=== PATIENT | male | born 1955 | race Caucasian/White ===

== ENCOUNTER 2017-10-14 15:48 | Emergency (ER) | payer MEDICAID ==
[~2017-10-14] VITALS: Ht 170.2 cm; Wt 77.3 kg
[2017-10-14 16:02] LABS: GLUCOSE,POINT OF CARE 96 MG/DL (70-110)
[2017-10-14 17:15] LABS: BASOPHILS # (AUTO) 0.05 K/uL (0.00-0.20); BASOPHILS % (AUTO) 0.8 % (0.0-2.0); EOSINOPHILS # (AUTO) 0.54 K/uL (0.00-0.70); EOSINOPHILS % (AUTO) 8.82 % (1.0-6.0); HEMATOCRIT 31.5 % (41-53); HEMOGLOBIN 10.6 g/dL (13.5-17.5); LYMPHOCYTES # (AUTO) 0.5 K/uL (1.0-4.8); LYMPHOCYTES % (AUTO) 8.9 % (22.0-44.0); MEAN CORPUSCULAR HEMOGLOBIN 35.4 pg (26.0-34.0); MEAN CORPUSCULAR HGB CONC 33.7 G/dL (31.0-37.0); MEAN CORPUSCULAR VOLUME 105 fL (80-100); MONOCYTES # (AUTO) 0.7 K/uL (0.1-1.0); NEUTROPHILS # (AUTO) 4.3 K/uL (1.8-7.7); NEUTROPHILS % (AUTO) 70.4 % (40.0-70.0); RED CELL DISTRIBUTION WIDTH 16.8 % (11.5-14.5); WHITE BLOOD COUNT (AUTO) 6.1 K/uL (4.5-11.0)
[2017-10-14] MEDS ORDERED: FERR-89 GT (17:17)
[2017-10-14] MEDS ORDERED: THIA100 GT (17:17)
[2017-10-14] MEDS ORDERED: ALLO100T GT (17:17)
[2017-10-14] MEDS ORDERED: RIFAX550 GT (17:17)
[2017-10-14] MEDS ORDERED: AMIO200T44 GT (17:17)
[2017-10-14] MEDS ORDERED: QUET25TA GT (17:17)
[2017-10-14] MEDS ORDERED: LANS30 GT (17:17)
[2017-10-14] MEDS ORDERED: LACT10SO8 GT (17:17)
[2017-10-14] MEDS ORDERED: FOLI1 GT (17:17)
[2017-10-14] MEDS ORDERED: QUET100T GT (17:19)
[2017-10-14 17:24] LABS: ANION GAP 10 mmol/L (8-16); CALCIUM, TOTAL 9.4 mg/dL (8.8-10.5); CARBON DIOXIDE 26 mmol/L (22-29); CHLORIDE 105 mmol/L (98-107); CREATININE 1.08 mg/dL (0.60-1.30); GLOMERULAR FILTR. RATE CALC > 60 mL/min (>60); SODIUM SERUM 141 mmol/L (136-145); UREA NITROGEN, BLOOD 26 mg/dL (7-18)
[2017-10-14 17:30] LABS: ALANINE AMINOTRANSFERASE 39 U/L (12-78); ALBUMIN 2.8 g/dL (3.4-5.0); ASPARTATE AMINOTRANSFERASE 62 U/L (15-37); BILIRUBIN,TOTAL 1.3 mg/dL (0.1-1.0); TOTAL PROTEIN, SERUM 7.9 g/dL (6.4-8.2)
[2017-10-14 17:50] LABS: PLATELET COUNT (AUTO) 64 K/uL (150-450)
[2017-10-14 17:51] LABS: RBC MORPHOLOGY COMMENT ABNORMAL RBC MORPH
[2017-10-14 20:17] VITALS: BP 120/70
== END 2017-10-14 22:03 | disposition home or self-care (01) ==
LOC: EMS 15:52
DX: R45.1 Restlessness and agitation (principal); J44.9 Chronic obstructive pulmonary disease, unspecified; K72.90 Hepatic failure, unspecified without coma; J96.90 Respiratory failure, unspecified, unspecified whether with hypoxia or hypercapnia; I12.9 Hypertensive chronic kidney disease with stage 1 through stage 4 chronic kidney disease, or unspecified chronic kidney disease; E11.22 Type 2 diabetes mellitus with diabetic chronic kidney disease; N18.9 Chronic kidney disease, unspecified; K21.9 Gastro-esophageal reflux disease without esophagitis; Z93.0 Tracheostomy status
CPT/HCPCS: 36415; 70450; 80053; 82140; 82962; 85025; 99285; G0480